=== PATIENT | female | born 1960 | race Hispanic/Latino ===

== ENCOUNTER → 2018-12-13 | Day surgery (SDC) | payer BC ==
[~2018-12-13] MED LIST: ATORVASTATIN CA20 MG PO; BACLOFEN10 MG PO; FENTANYL CITRATE/PF 100MCG/2 ML INJ ONE; HUMALOG100 UNIT/1 SC; LANTUS 3ML100 UNITS/ SC; LISINOPRIL10 MG PO; METOPROLOL PO; MIDAZOLAM HCL 2 MG/2 ML VIAL ONE; OR PHACO EYE KIT ONE; PREOP PHACO EYE KIT ONE; TRAZODONE HCL50 MG PO; [UNRECOGNIZED DRUG - OTHER]
--- OUTSIDE RECORDS SUMMARY | 2018-12-13 10:42 | XMS REPORT | Clinical Summary ---
Author Author [facility] Address Unknown Phone Unavailable Care Team Providers Care Dust Collector Attendant Name Role Phone Sharpless PCP Allergies No Known Allergies Medications End Date Status Medication Sig Dispensed Refills Start Date Active dapagliflozin-metformin Take by mouth 0 (XIGDUO XR) 10-1,000 mg daily. per ER tablet Active metoprolol (LOPRESSOR) 25 Take 25 mg by 0 MG tablet mouth 2 (two) times daily. Active valsartan (DIOVAN) 160 MG Take 160 mg 0 tablet by mouth daily. Active atorvastatin (LIPITOR) 20 Take 20 mg by 0 MG tablet mouth daily. Active insulin lispro (HUMALOG) Inject 10 0 100 unit/mL injection Units subcutaneousl y 2 (two) times daily. Active insulin glargine (LANTUS) Inject 30 0 100 unit/mL injection Units subcutaneousl y nightly Use as directed . Active gabapentin (NEURONTIN) Take 300 mg 0 300 MG capsule by mouth 3 (three) times daily. Active cyclobenzaprine Take 1 tablet 30 tablet 0 (FLEXERIL) 5 MG tablet (5 mg total) 7 by mouth 3 (three) times daily as needed for Muscle spasms. Active Problems Problem Noted Date Sciatica 05/27/2017 HNP (herniated nucleus pulposus) 05/27/2017 Osteoarthritis of spine with radiculopathy, lumbar region 05/27/2017 Family History Medical History Relation Name Comments Alzheimer's disease Mother Relation Name Status Comments Mother Social History Date Tobacco Use Types Packs/Day Years Used Never Smoker Smokeless Tobacco: Never Used Alcohol Use Drinks/Week oz/Week Comments No Sex Assigned at Date Recorded Not on file Industry Job Start Date Occupation Not on file Not on file Not on file Travel End Travel History Travel Start No recent travel history available. Last Filed Vital Signs Not on file Plan of Treatment Not on file Implants Device Identifier Shelf Expiration Date Model / Serial / Lot Implanted Type Area Manufactur er 09/28/2018 [id number] / / [id number] Matrix Floseal Hemo W/O Ndl 10 Cement/Shiraz N/A: Spine SWANN:BIO [id number] - [id number] ler/Adhesi Lumbar SCI Implanted: Qty: 1 on 05/27/2017 by Simón Bishop MD Results Not on fileafter 12/12/2017 Insurance Payer Benefit Subscriber ID Type Phone Address Plan / Group BLUE CROSS/BLUE SHIELD BCBS PPO xxxxxxxxxxxx PPO [phone] [address] [place] [address] CHOICE (Home) [place] [address] Advance Directives For more information, please contact: [facility] [address] [place] [address] Date Inactivated Comments Code Status Date Activated 05/28/2017 12:59 PM Full Code 05/27/2017 3:57 PM This code status was determined by: Patient 05/27/2017 3:57 PM Full Code 05/27/2017 7:51 AM This code status was determined by: Patient
--- OUTSIDE RECORDS SUMMARY | 2018-12-13 10:42 | XMS REPORT ---
Author Author [facility] Address Unknown Phone Unavailable Care Team Providers Care Hide Grader Name Role Phone ROLY CRAWFORD Unavailable Unavailable Problems This patient has no known problems. Allergies, Adverse Reactions, Alerts This patient has no known allergies or adverse reactions. Medications This patient has no known medications. Results Test Description Test Time Test Comments Text Results Atomic Results Result Comments POCT-GLUCOSE METER 2017-05-28 06:50:00 POC-GLUCOSE METER (BEAKER) (test jiil=3454) 154 mg/dL 70-110 TESTED AT [facility] [address] [facility] [address] BASIC METABOLIC [id number] 03:50:00* Test Item Value Reference Range Comments SODIUM (BEAKER) (test isdd=350) 137 meq/L 135-148 POTASSIUM (BEAKER) (test niim=528) 4.4 meq/L 3.6-5.5 CHLORIDE (BEAKER) (test vsjb=575) 103 meq/L 98-106 CO2 (BEAKER) (test tblj=623) 24 meq/L 24-32 BLOOD UREA NITROGEN (BEAKER) (test ptoc=766) 11 mg/dL 10-26 CREATININE (BEAKER) (test dcpo=472) 0.56 mg/dL 0.50-1.20 GLUCOSE RANDOM (BEAKER) (test mfdx=952) 106 mg/dL 70-110 CALCIUM (BEAKER) (test cjzo=609) 8.6 mg/dL 8.5-10.5 EGFR (BEAKER) (test nxgv=4384) 111 mL/min/1.73 sq m ESTIMATED GFR IS NOT ACCURATE CREATININE CLEARANCE IN PREDICTING GLOMERULAR FILTRATION RATE. ESTIMATED GFR IS NOT APPLICABLE FOR DIALYSIS PATIENTS. HEMOGLOBIN AND [id number] 03:47:00* Test Item Value Reference Range Comments HEMOGLOBIN (BEAKER) (test pfbn=166) 12.6 GM/DL 12.0-15.0 HEMATOCRIT (BEAKER) (test opsd=693) 38.3 % 36.0-45.0 POCT-GLUCOSE [id number] 03:44:00* Test Item Value Reference Range Comments POC-GLUCOSE METER (BEAKER) (test kmyk=9603) 121 mg/dL 70-110 TESTED AT [facility] [address] [facility] [address] POCT-GLUCOSE [id number] 20:54:00* Test Item Value Reference Range Comments POC-GLUCOSE METER (BEAKER) (test recl=3201) 174 mg/dL 70-110 TESTED AT [facility] [address] [facility] [address] RAD, SPINE, LUMBAR, 1 [id number] 13:51:00Reason for exam:->RequiredFINAL REPORT INDICATION: Spinal surgery. 1 view of the lumbar spine was performed. COMPARISON: Same date IMPRESSION: The surgical probe o verlies the L4 spinous process near the level of the inferior endplate of L4. In traoperative consultation was not requested. Signed: Twyla Gold Verifie d Date/Time: 05/27/2017 13:51:05 Reading Location: [facility] Radiology Reading Room , SPINE, LUMBAR, 1 [id number] 13:51:00Reason for exam:->RequiredFINAL REPORT INDICATION: Spinal surgery. 1 view of the lumbar spine was performed. COMPARISON: Same date IMPRESSION: The surgical probe overlies the L4 pedicle at the level of mid L4. Intraoperative consultation was not requested. Signed: Twyla Gold Verified Date/Time: 05/27/2017 13:51:35 Reading Location: [facility] Radiology Reading Room -GLUCOSE [id number] 08:51:00* Test Item Value Reference Range Comments POC-GLUCOSE METER (BEAKER) (test phdo=3812) 238 mg/dL 70-110 TESTED AT [facility] [address] [facility] [address] CBC W/PLT COUNT & AUTO [id number] 18:55:00* Test Item Value Reference Range Comments WHITE BLOOD CELL COUNT (BEAKER) (test istq=138) 11.5 K/ L 4.0-10.0 RED BLOOD CELL COUNT (BEAKER) (test ffxj=754) 5.54 M/ L 4.00-5.00 HEMOGLOBIN (BEAKER) (test qxwb=258) 14.9 GM/DL 12.0-15.0 HEMATOCRIT (BEAKER) (test kzkw=718) 47.4 % 36.0-45.0 MEAN CORPUSCULAR VOLUME (BEAKER) (test adjt=650) 85.5 fL 82.0-99.0 MEAN CORPUSCULAR HEMOGLOBIN (BEAKER) (test jzdn=495) 26.9 pg 27.0-33.0 MEAN CORPUSCULAR HEMOGLOBIN CONC (BEAKER) (test kaqp=264) 31.5 GM/DL 32.0-36.0 RED CELL DISTRIBUTION WIDTH (BEAKER) (test ycrm=251) 13.3 % 12.0-15.0 PLATELET COUNT (BEAKER) (test tspl=103) 374 K/CU MM 150-430 MEAN PLATELET VOLUME (BEAKER) (test gdzk=568) 7.3 fL 6.5-10.5 NEUTROPHILS RELATIVE PERCENT (BEAKER) (test bfyb=429) 61 % LYMPHOCYTES RELATIVE PERCENT (BEAKER) (test vbzk=816) 28 % MONOCYTES RELATIVE PERCENT (BEAKER) (test acyu=493) 8 % EOSINOPHILS RELATIVE PERCENT (BEAKER) (test pqdw=707) 3 % BASOPHILS RELATIVE PERCENT (BEAKER) (test exgh=676) 1 % NEUTROPHILS ABSOLUTE COUNT (BEAKER) (test ngbl=390) 7.00 K/ L 1.80-8.00 LYMPHOCYTES ABSOLUTE COUNT (BEAKER) (test podo=406) 3.20 K/ L 1.48-4.50 MONOCYTES ABSOLUTE COUNT (BEAKER) (test ynbp=601) 0.90 K/ L 0.00-1.30 EOSINOPHILS ABSOLUTE COUNT (BEAKER) (test jzji=418) 0.30 K/ L 0.00-0.50 BASOPHILS ABSOLUTE COUNT (BEAKER) (test buch=521) 0.10 K/ L 0.00-0.20 RAD, CHEST, 2 [id number] 18:28:00Reason for exam:->surgical clearance - for Lateral discectomy on 05/27/17Should this be performed at the bedside?->NoIs the patient ?->NoFINAL REPORT HISTORY : surgical clearance - for Lateral discectomy on 05/27/17. Comparison: None Comment: Two views of the chest, PA and lateral, were obtained. The cardiac silhouette is within normal limits. There is no pleural effusion, pneumothorax or infiltrate. No lytic or blastic abnormalities. Multilevel degenerative disc changes of the thoracic spine are seen. Impression: No acute cardiothoracic abnormalities. Signed: Feliciano Burrows MDReport Verified Date/Time: 05/20/2017 18:28:02 Reading Location: [address] Consult Reading Room C METABOLIC [id number] 18:11:00* Test Item Value Reference Range Comments SODIUM (BEAKER) (test yqyi=960) 140 meq/L 135-148 POTASSIUM (BEAKER) (test kadr=909) 4.2 meq/L 3.6-5.5 CHLORIDE (BEAKER) (test vrcv=963) 103 meq/L 98-106 CO2 (BEAKER) (test ezke=699) 22 meq/L 24-32 BLOOD UREA NITROGEN (BEAKER) (test aloc=891) 20 mg/dL 10-26 CREATININE (BEAKER) (test jbuu=055) 0.71 mg/dL 0.50-1.20 GLUCOSE RANDOM (BEAKER) (test jbit=231) 190 mg/dL 70-110 CALCIUM (BEAKER) (test ccua=853) 9.7 mg/dL 8.5-10.5 EGFR (BEAKER) (test aazk=1198) 85 mL/min/1.73 sq m ESTIMATED GFR IS NOT ACCURATE CREATININE CLEARANCE IN PREDICTING GLOMERULAR FILTRATION RATE. ESTIMATED GFR IS NOT APPLICABLE FOR DIALYSIS PATIENTS. [id number] 18:11:00* Test Item Value Reference Range Comments PROTIME (BEAKER) (test zixj=194) 10.2 seconds 9.8-12.0 INR (BEAKER) (test cyjw=521) 0.9 <=4.0 PARTIAL THROMBOPLASTIN TIME (BEAKER) (test rnml=268) 25.3 seconds 24.0-33.2 RECOMMENDED COUMADIN/WARFARIN INR THERAPY RANGESSTANDARD DOSE: 2.0 - 3.0 Inclu dora: PROPHYLAXIS for venous thrombosis, systemic embolization; TREATMENT for shawn ous thrombosis and/or pulmonary embolus.HIGH RISK: Target INR is 2.5-3.5 for pat ients with mechanical heart valves.
[2018-12-13 14:15] VITALS: BP 138/74
== END | disposition home or self-care (01) ==
LOC: OR 10:40
PROVIDERS: ATTEND Ophthalmology
DX: H25.12 Age-related nuclear cataract, left eye (principal); I10 Essential (primary) hypertension; E78.5 Hyperlipidemia, unspecified; E11.9 Type 2 diabetes mellitus without complications; Z01.810 Encounter for preprocedural cardiovascular examination; Z79.4 Long term (current) use of insulin
CPT/HCPCS: 66984; 93005; J2250; V2632

== ENCOUNTER → 2018-12-27 | Day surgery (SDC) | payer BC ==
--- OUTSIDE RECORDS SUMMARY | 2018-12-27 09:07 | XMS REPORT | Clinical Summary ---
Author Author [facility] Address Unknown Phone Unavailable Care Team Providers Care Recruiting And Selection Consultant Name Role Phone Sharpless PCP Allergies No [...] Lot Implanted Type Area Manufactur er 09/28/2018 [id number] / / [id number] Matrix Floseal Hemo W/O Ndl 10 Cement/Shiraz N/A: Spine SWANN:BIO [id number] - [id number] ler/Adhesi Lumbar SCI Implanted: Qty: 1 on 05/27/2017 by Simón Bishop MD Results Not on fileafter 12/26/2017 Insurance Payer Benefit Subscriber ID Type Phone Address Plan / Group BLUE CROSS/BLUE SHIELD BCBS PPO xxxxxxxxxxxx PPO [phone] [address] [place] [address] CHOICE (Home) [place] [address] Advance Directives For more information, please contact: [facility] [address] [place] [address] Date Inactivated Comments Code Status Date Activated 05/28/2017 12:59 PM Full Code 05/27/2017 3:57 PM This code status was determined by: Patient 05/27/2017 3:57 PM Full Code 05/27/2017 7:51 AM This code status was determined by: Patient
[2018-12-27 12:10] VITALS: BP 142/75
== END | disposition home or self-care (01) ==
LOC: OR 09:03
PROVIDERS: ATTEND Ophthalmology
DX: H25.11 Age-related nuclear cataract, right eye (principal); I10 Essential (primary) hypertension; E11.9 Type 2 diabetes mellitus without complications; E78.5 Hyperlipidemia, unspecified; Z79.4 Long term (current) use of insulin
CPT/HCPCS: 36415; 66984; 82948; J2250; V2632

== ENCOUNTER 2022-12-19 18:20 | Emergency (ER) | payer BC ==
[~2022-12-19] VITALS: Ht 165.1 cm; Wt 65.8 kg
[~2022-12-19 18:20] MED LIST changes: -FENTANYL CITRATE/PF 100MCG/2 ML INJ ONE; -MIDAZOLAM HCL 2 MG/2 ML VIAL ONE; -OR PHACO EYE KIT ONE; -PREOP PHACO EYE KIT ONE
[2022-12-19 19:12] VITALS: O2SAT 97
[2022-12-19] MEDS ORDERED: CEFTRIAXONE 1 GM VIAL IM ONE (19:30)
[2022-12-19] MEDS ORDERED: CEFPODOXIME PR200 MG PO (19:34)
[2022-12-19] MEDS ORDERED: CEFTRIAXONE 1 GM VIAL ONE (19:41)
== END 2022-12-19 20:12 | disposition home or self-care (01) ==
LOC: FSED 18:26
DX: R30.0 Dysuria (principal); M54.9 Dorsalgia, unspecified; I10 Essential (primary) hypertension; E11.9 Type 2 diabetes mellitus without complications; E78.5 Hyperlipidemia, unspecified
CPT/HCPCS: 87086; 99283; J0696